=== PATIENT | male | born 1950 | race Caucasian/White ===

== ENCOUNTER 2017-03-10 06:20 | Day surgery (SDC) | payer BC ==
[~2017-03-10 06:20] MED LIST: Lactated Ringers 1,000 ML IV SCH; Lidocaine 1%/Sod Bicarbonate in NS 8.4% 1 ML Syringe IV PRN; Sodium Chloride 0.9% 10 ML Syringe FLUSH PRN
[2017-03-10] MEDS ORDERED: Bupivacaine 0.25% 30 ML SDV ONE (06:35)
[2017-03-10] MEDS ORDERED: Lidocaine 1% 50 ML MDV ONE (06:51)
[2017-03-10] MEDS ORDERED: Clindamycin Phosphate 900 MG in Sodium Chloride 0.9% 100 ML IV ONE (07:00)
[2017-03-10 08:07] VITALS: BP 157/82
--- NOTE | 2017-03-17 10:04 | PCM.OPNOTE ---
- General Post-Op/Procedure Note Date of Surgery/Procedure: 03/10/17 Operative Procedure(s): partial great toe toenail removal bilaterally Pre Op Diagnosis: bilatera ingrown toenails great toes Post-Op Diagnosis: Same Anesthesia Technique: Local Primary Surgeon: Marquis Sanchez Logger: Nereida Griffith in mLs: 5 Complications: None Condition: Good
--- NOTE | 2017-03-17 10:20 | OR ---
DATE OF OPERATION: 03/10/2017 SURGEON: Marquis Sanchez MD OPERATION PERFORMED: Bilateral partial great-toe toenail removal. PREOPERATIVE DIAGNOSIS: Bilateral ingrown toenails, great toes. POSTOPERATIVE DIAGNOSIS: Bilateral ingrown toenails, great toes. ANESTHESIA: Local. LINE PRODUCER: Nereida Griffith PA-C. ESTIMATED BLOOD LOSS: Less than 5 mL. COMPLICATIONS: None. CONDITION: Stable. DESCRIPTION OF PROCEDURE: The patient was identified in the preop holding area. All proper sites were marked and identified. The patient was taken back to the operating theater, where the patient had bilateral feet sterilely prepped and draped in the usual sterile fashion. OR-wide time-out was performed. The patient received 2 grams of IV Ancef. At this time, starting with the right toe on the medial aspect of the great toe, it was anesthetized with 1% lidocaine without epinephrine and 25% Marcaine without epinephrine. Once it was anesthetized, the medial portion of the nail was removed with a tenotomy scissor and a [place] elevator all the way back to the eponychium, making sure at that time to remove all of it all the way back to the eponychium. Phenol was then used once the toenail was removed back near the nail bed to make sure it did not return. At this time, this was then again done on the left side with anesthetization using the same technique and then the medial portion of that toenail was removed in the same technique. The patient tolerated the procedure well and was sent to the PACU in stable condition after sterile soft dressings were applied. GALLO /[id number]
== END 2017-03-10 08:31 | disposition home or self-care (01) ==
LOC: JD.SDS 06:20
PROVIDERS: ATTEND Orthopaedic Surgery
PROC: 0HBRXZZ Excision of Toe Nail, External Approach (ICD-10-PCS; principal; 2017-03-10)
DX: L60.0 Ingrowing nail (principal); I10 Essential (primary) hypertension; I73.9 Peripheral vascular disease, unspecified; Z88.0 Allergy status to penicillin; Z88.8 Allergy status to other drugs, medicaments and biological substances; Z91.011 Allergy to milk products; Z79.899 Other long term (current) drug therapy
CPT/HCPCS: 11765; 87641; J7030; J7120; J3490